=== PATIENT | male | born 1985 | race Caucasian/White ===

== ENCOUNTER 2018-02-20 19:26 | Emergency (ER) | payer OTHER | END 2018-02-20 22:38 | disposition home or self-care (01) | LOC: FTE 19:26 | DX: R07.89 Other chest pain (principal); R40.2412 Glasgow coma scale score 13-15, at arrival to emergency department | CPT/HCPCS: 93005; 99283-25 ==

== ENCOUNTER 2018-10-11 06:20 | Emergency (ER) | payer OTHER ==
[2018-10-11] MEDS: KETOROLAC 30 MG INJ IM (06:53)
== END 2018-10-11 07:44 | disposition home or self-care (01) ==
LOC: FTE 07:44
DX: M54.6 Pain in thoracic spine (principal)
CPT/HCPCS: 96372; 99284-25